=== PATIENT | male | born 1935 | race Caucasian/White ===

== ENCOUNTER 2017-08-11 15:36 | Inpatient (IN) | payer MEDICARE ==
[~2017-08-11] VITALS: Ht 160 cm; Wt 65.5 kg
[2017-08-11] MEDS ORDERED: SODIUM CHLORIDE FLUSH 10ML SYR IVF ONE (16:30)
[2017-08-11] MEDS ORDERED: SODIUM CHLORIDE 0.9% 1,000ML IVBOLUS ONE (16:30)
[2017-08-11 16:31] LABS: BASOPHILS # (AUTO) 0.04 x10^3/uL (0-0.1); BASOPHILS % (AUTO) 1 % (0-1); EOSINOPHILS # (AUTO) 0.17 x10^3/uL (0-0.4); EOSINOPHILS % (AUTO) 2 % (1-7); LYMPHOCYTES # (AUTO) 1.65 x10^3/uL (1-3.4); LYMPHOCYTES % (AUTO) 20 % (22-44); MD NO; MEAN CORPUSCULAR HEMOGLOBIN 32.2 pg (27.5-34.5); MEAN CORPUSCULAR HGB CONC 34.3 g/dL (33.2-36.2); MEAN CORPUSCULAR VOLUME 93.9 fL (81-97); MEAN PLATELET VOLUME 7.3 fL (7.4-10.4); MONOCYTES # (AUTO) 0.69 x10^3/uL (0.2-0.8); MONOCYTES % (AUTO) 8 % (2-9); NEUTROPHILS # (AUTO) 5.81 x10^3/uL (1.8-6.8); NEUTROPHILS % (AUTO) 70 % (42-75); PLATELET COUNT 323 x10^3/uL (130-400); RED BLOOD COUNT 4.09 x10^6/uL (4.38-5.82)
[2017-08-11 16:35] LABS: INTERNATIONAL NORMALIZED RATIO 2.7 (0.93-1.1); PROTHROMBIN TIME 27.3 Seconds (9.6-11.5)
[2017-08-11 16:40] LABS: ALANINE AMINOTRANSFERASE 27 U/L (12-78); ALBUMIN 3.6 g/dL (3.4-5.0); ANION GAP 7 mmol/L (5-15); CHLORIDE 109 mmol/L (98-107)
[2017-08-11 16:43] LABS: ALKALINE PHOSPHATASE 104 U/L (45-117); BILIRUBIN,TOTAL 0.5 mg/dL (0.2-1.0); CREATININE 1.09 mg/dL (0.7-1.3); TOTAL PROTEIN 7.3 g/dL (6.4-8.2)
[2017-08-11] MEDS ORDERED: METF500T4 PO (18:31)
[2017-08-11] MEDS ORDERED: MAGN300C PO (18:31)
[2017-08-11] MEDS ORDERED: WARF7.5T6 PO (18:31)
[2017-08-11] MEDS ORDERED: LIRA0.6P2 SQ (18:31)
[2017-08-11] MEDS ORDERED: INSU100V8 SQ (18:31)
[2017-08-11] MEDS ORDERED: UBIQ100C3 PO (18:31)
[2017-08-11] MEDS ORDERED: MULT-326 PO (18:31)
[2017-08-11] MEDS ORDERED: PIOG15TA2 PO (18:31)
[2017-08-11] MEDS ORDERED: BACL-19 PO (18:31)
[2017-08-11] MEDS ORDERED: FLUT1DIS3 INH (18:31)
[2017-08-11] MEDS ORDERED: ATOR10TA9 PO (18:31)
[2017-08-11] MEDS ORDERED: OMNIPAQUE 350 MG/ML, 100ML BOTTLE ONE (19:01)
[2017-08-11] MEDS ORDERED: SODIUM CHLORIDE 0.9% 1,000 ML IV SCH (20:49)
[2017-08-11] MEDS ORDERED: GLUCAGON 1 MG IM PRN (21:00)
[2017-08-11] MEDS ORDERED: DEXTROSE 4 GM TAB.CHEW PO PRN (21:00)
[2017-08-11] MEDS ORDERED: DEXTROSE 50%, 50ML SYRINGE IVPush PRN (21:00)
[2017-08-11] MEDS ORDERED: ACETAMINOPHEN 325 MG TABLET PO PRN (21:00)
[2017-08-11] MEDS ORDERED: SODIUM CHLORIDE FLUSH 10ML SYR IVF PRN (21:00)
[2017-08-11] MEDS: SODIUM CHLORIDE FLUSH 10ML SYR IVF SCH (21:40)
[2017-08-11 22:30] VITALS: BP 150/74
[2017-08-11] MEDS: INSULIN DETEMIR 100 UNITS/ML, PEN SQ-INSULIN SCH (23:53)
[2017-08-11] MEDS: BACLOFEN 10 MG TABLET PO SCH (23:54)
[2017-08-11] MEDS: ATORVASTATIN 10 MG TABLET PO SCH (23:54)
[2017-08-12 00:41] LABS: OCCULT BLOOD POSITIVE (NEGATIVE)
[2017-08-12 00:42] LABS: CLOSTRIDIUM DIFFICILE ANTIGEN POSITIVE; CLOSTRIDIUM DIFFICILE TOXIN NEGATIVE (Negative)
[2017-08-12 02:40] VITALS: BP 126/81
[2017-08-12 06:45] VITALS: BP 118/62
[2017-08-12 07:40] LABS: INTERNATIONAL NORMALIZED RATIO 1.8 (0.93-1.1); PROTHROMBIN TIME 18.3 Seconds (9.6-11.5)
[2017-08-12 07:50] LABS: BASOPHILS # (AUTO) 0.02 x10^3/uL (0-0.1); BASOPHILS % (AUTO) 0 % (0-1); EOSINOPHILS # (AUTO) 0.27 x10^3/uL (0-0.4); EOSINOPHILS % (AUTO) 3 % (1-7); LYMPHOCYTES # (AUTO) 1.64 x10^3/uL (1-3.4); LYMPHOCYTES % (AUTO) 20 % (22-44); MD NO; MEAN CORPUSCULAR HEMOGLOBIN 32.7 pg (27.5-34.5); MEAN CORPUSCULAR HGB CONC 34.8 g/dL (33.2-36.2); MEAN PLATELET VOLUME 7.2 fL (7.4-10.4); MONOCYTES % (AUTO) 10 % (2-9); NEUTROPHILS # (AUTO) 5.29 x10^3/uL (1.8-6.8); NEUTROPHILS % (AUTO) 66 % (42-75); PLATELET COUNT 261 x10^3/uL (130-400); RED BLOOD COUNT 3.33 x10^6/uL (4.38-5.82); RED CELL DISTRIBUTION WIDTH 14.2 % (9.4-14.8)
[2017-08-12 07:51] LABS: HEMOGRAM NOTE RECHECKED
[2017-08-12] MEDS ORDERED: BACLOFEN 10 MG TABLET PO SCH (09:00)
[2017-08-12] MEDS ORDERED: metFORMIN 500 MG TABLET PO SCH (09:00)
[2017-08-12] MEDS ORDERED: PIOGLITAZONE 15 MG TABLET PO SCH (09:00)
[2017-08-12] MEDS: MULTIVITAMINS/MINERALS TABLET PO SCH (09:06)
[2017-08-12] MEDS: SODIUM CHLORIDE FLUSH 10ML SYR IVF SCH ×2 (09:06→21:42)
[2017-08-12] MEDS: FLUTICASONE/VILANTEROL 100-25MCG/INH INH SCH (11:36)
[2017-08-12 12:30] VITALS: BP 135/79
[2017-08-12] MEDS: Liraglutide (Victoza 3-Pak) 1.2 MG SQ SCH (12:45)
[2017-08-12] MEDS: INSULIN ASPART 100 UNITS/ML, PEN SQ-INSULIN SCH ×2 (17:52→21:00)
[2017-08-12 19:51] VITALS: BP 129/72
[2017-08-12] MEDS: ATORVASTATIN 10 MG TABLET PO SCH (21:00)
[2017-08-12] MEDS: INSULIN DETEMIR 100 UNITS/ML, PEN SQ-INSULIN SCH (21:41)
[2017-08-12] MEDS: BACLOFEN 10 MG TABLET PO SCH (23:55)
[2017-08-13 02:59] VITALS: BP 109/63
[2017-08-13 06:17] LABS: BASOPHILS # (AUTO) 0.02 x10^3/uL (0-0.1); BASOPHILS % (AUTO) 0 % (0-1); EOSINOPHILS # (AUTO) 0.24 x10^3/uL (0-0.4); EOSINOPHILS % (AUTO) 3 % (1-7); LYMPHOCYTES # (AUTO) 1.25 x10^3/uL (1-3.4); LYMPHOCYTES % (AUTO) 17 % (22-44); MD NO; MEAN CORPUSCULAR HEMOGLOBIN 32.2 pg (27.5-34.5); MEAN CORPUSCULAR HGB CONC 34.5 g/dL (33.2-36.2); MEAN CORPUSCULAR VOLUME 93.5 fL (81-97); MONOCYTES # (AUTO) 0.76 x10^3/uL (0.2-0.8); MONOCYTES % (AUTO) 10 % (2-9); NEUTROPHILS # (AUTO) 5.19 x10^3/uL (1.8-6.8); NEUTROPHILS % (AUTO) 70 % (42-75); PLATELET COUNT 282 x10^3/uL (130-400); RED BLOOD COUNT 3.36 x10^6/uL (4.38-5.82); RED CELL DISTRIBUTION WIDTH 13.8 % (9.4-14.8)
[2017-08-13 06:28] LABS: CHLORIDE 107 mmol/L (98-107)
[2017-08-13 06:34] LABS: ANION GAP 7 mmol/L (5-15); CALCIUM 8.3 mg/dL (8.5-10.1); CREATININE 0.89 mg/dL (0.7-1.3)
[2017-08-13] MEDS: INSULIN ASPART 100 UNITS/ML, PEN SQ-INSULIN SCH ×4 (07:00→21:57)
[2017-08-13 07:38] VITALS: BP 144/74
[2017-08-13] MEDS: BACLOFEN 10 MG TABLET PO SCH (09:18)
[2017-08-13] MEDS: MULTIVITAMINS/MINERALS TABLET PO SCH (09:18)
[2017-08-13] MEDS: FLUTICASONE/VILANTEROL 100-25MCG/INH INH SCH (09:19)
[2017-08-13 11:24] LABS: INTERNATIONAL NORMALIZED RATIO 1.18 (0.93-1.1); PROTHROMBIN TIME 12.1 Seconds (9.6-11.5)
[2017-08-13] MEDS: Liraglutide (Victoza 3-Pak) 1.2 MG SQ SCH (11:31)
[2017-08-13] MEDS: SODIUM CHLORIDE FLUSH 10ML SYR IVF SCH ×2 (11:34→21:58)
[2017-08-13 13:31] VITALS: BP 148/64
[2017-08-13] MEDS ORDERED: WARFARIN 10 MG TABLET PO-COUM ONE (18:00)
[2017-08-13 18:53] VITALS: BP 136/61
[2017-08-13] MEDS: ATORVASTATIN 10 MG TABLET PO SCH (21:00)
[2017-08-13] MEDS: INSULIN DETEMIR 100 UNITS/ML, PEN SQ-INSULIN SCH (21:57)
[2017-08-14 02:14] VITALS: BP 119/77
[2017-08-14 05:27] LABS: BASOPHILS # (AUTO) 0.01 x10^3/uL (0-0.1); BASOPHILS % (AUTO) 0 % (0-1); EOSINOPHILS % (AUTO) 3 % (1-7); LYMPHOCYTES # (AUTO) 0.94 x10^3/uL (1-3.4); LYMPHOCYTES % (AUTO) 12 % (22-44); MD NO; MEAN CORPUSCULAR HEMOGLOBIN 32.3 pg (27.5-34.5); MEAN CORPUSCULAR HGB CONC 34.1 g/dL (33.2-36.2); MEAN CORPUSCULAR VOLUME 94.6 fL (81-97); MEAN PLATELET VOLUME 7.3 fL (7.4-10.4); MONOCYTES # (AUTO) 0.83 x10^3/uL (0.2-0.8); MONOCYTES % (AUTO) 11 % (2-9); NEUTROPHILS # (AUTO) 5.67 x10^3/uL (1.8-6.8); NEUTROPHILS % (AUTO) 74 % (42-75); PLATELET COUNT 270 x10^3/uL (130-400); RED BLOOD COUNT 3.45 x10^6/uL (4.38-5.82); RED CELL DISTRIBUTION WIDTH 13.7 % (9.4-14.8)
[2017-08-14 06:01] LABS: INTERNATIONAL NORMALIZED RATIO 1.12 (0.93-1.1); PROTHROMBIN TIME 11.5 Seconds (9.6-11.5)
[2017-08-14] MEDS: INSULIN ASPART 100 UNITS/ML, PEN SQ-INSULIN SCH (07:00)
[2017-08-14 07:05] VITALS: BP 118/70
[2017-08-14] MEDS: SODIUM CHLORIDE FLUSH 10ML SYR IVF SCH (09:00)
[2017-08-14] MEDS: BACLOFEN 10 MG TABLET PO SCH (09:22)
[2017-08-14] MEDS: FLUTICASONE/VILANTEROL 100-25MCG/INH INH SCH (09:22)
[2017-08-14] MEDS: MULTIVITAMINS/MINERALS TABLET PO SCH (09:22)
[2017-08-14] MEDS ORDERED: WARFARIN 10 MG TABLET PO-COUM ONE (18:00)
== END 2017-08-14 12:55 | disposition home or self-care (01) | DRG 378 ==
LOC: ED 19:27 → SUATTDRO 20:22 → EDIP 21:03 → 4EST 22:17
PROVIDERS: ADMIT Hospitalist; ATTEND Hospitalist
PROC: 5A09357 Assistance with Respiratory Ventilation, Less than 24 Consecutive Hours, Continuous Positive Airway Pressure (ICD-10-PCS; principal; 2017-08-11)
DX: K57.31 Diverticulosis of large intestine without perforation or abscess with bleeding (principal); D68.69 Other thrombophilia; E11.9 Type 2 diabetes mellitus without complications; J44.9 Chronic obstructive pulmonary disease, unspecified; E78.5 Hyperlipidemia, unspecified; Z79.01 Long term (current) use of anticoagulants; G47.30 Sleep apnea, unspecified; K40.90 Unilateral inguinal hernia, without obstruction or gangrene, not specified as recurrent; M54.9 Dorsalgia, unspecified; G89.29 Other chronic pain; R79.1 Abnormal coagulation profile; Z79.4 Long term (current) use of insulin; Z87.891 Personal history of nicotine dependence; Z86.718 Personal history of other venous thrombosis and embolism; Z90.49 Acquired absence of other specified parts of digestive tract
CPT/HCPCS: 36415; 74177; 78278; 80048; 80053; 82272; 82962; 83690; 85014; 85018; 85025; 85610; 87324; 87493; 93970; 94660; 96360; J1815; Q9967; A9560; C9898; J7030

== ENCOUNTER 2017-08-23 15:33 | Inpatient (IN) | payer MEDICARE ==
[~2017-08-23] VITALS: Ht 160 cm; Wt 65.4 kg
[~2017-08-23 15:33] MED LIST: ATOR10TA9 PO; BACL-19 PO; FLUT1DIS3 INH; INSU100V8 SQ; LIRA0.6P2 SQ; MAGN300C PO; METF500T4 PO; MULT-326 PO; PIOG15TA2 PO; UBIQ100C3 PO; WARF7.5T6 PO
[2017-08-23] MEDS ORDERED: SODIUM CHLORIDE FLUSH 10ML SYR IVF ONE (17:00)
[2017-08-23 17:02] LABS: HEMATOCRIT 38.6 % (39.2-51.8); HEMOGLOBIN 12.9 g/dL (13.7-18.0); WHITE BLOOD COUNT 9.3 x10^3/uL (3.4-10)
[2017-08-23 17:13] LABS: ASPARTATE AMINO TRANSFERASE 22 U/L (15-37); BLOOD UREA NITROGEN 17 mg/dL (7-18)
[2017-08-23 17:18] LABS: IS PT STATUS REG ER OR PRE ER? YES
[2017-08-23] MEDS ORDERED: SODIUM CHLORIDE FLUSH 10ML SYR IVF PRN (19:00)
[2017-08-23] MEDS ORDERED: BUPIVACAINE 0.25% ONE (19:16)
[2017-08-23] MEDS ORDERED: MIDAZOLAM 1 MG/ML, 5ML ONE (19:21)
[2017-08-23] MEDS ORDERED: ONDANSETRON 2MG/ML, 2ML ONE (19:21)
[2017-08-23] MEDS ORDERED: MORPHINE SULFATE 4 MG/ML, 1ML ONE ×2 (19:21→20:07)
[2017-08-23] MEDS ORDERED: MIDAZOLAM 1 MG/ML, 2ML IVPush ONE (19:30)
[2017-08-23] MEDS ORDERED: ONDANSETRON 2MG/ML, 2ML IVPush ONE (19:30)
[2017-08-23] MEDS: MORPHINE SULFATE 4 MG/ML, 1ML IVPush PRN ×2 (19:31→20:08)
[2017-08-23 21:00] VITALS: BP 127/67
[2017-08-23] MEDS ORDERED: ACETAMINOPHEN 325 MG TABLET PO PRN (22:30)
[2017-08-23] MEDS ORDERED: ONDANSETRON ODT 4 MG PO PRN (22:30)
[2017-08-23] MEDS: INSULIN ASPART 100 UNITS/ML, PEN SQ-INSULIN SCH (23:00)
[2017-08-23] MEDS ORDERED: UBIQ75CA PO (23:04)
[2017-08-23] MEDS: SODIUM CHLORIDE 0.9% 1,000 ML IV SCH (23:55)
[2017-08-24] MEDS: BACLOFEN 10 MG TABLET PO SCH ×2 (00:01→20:13)
[2017-08-24] MEDS: MAGNESIUM OXIDE 400 MG TABLET PO SCH ×2 (00:01→20:12)
[2017-08-24 02:05] VITALS: BP 124/67
[2017-08-24] MEDS ORDERED: ALBUTEROL SULFATE 2.5 MG/3 ML NPPB PRN (03:30)
[2017-08-24 05:28] LABS: HEMATOCRIT 34.6 % (39.2-51.8); HEMOGLOBIN 11.7 g/dL (13.7-18.0); WHITE BLOOD COUNT 8.5 x10^3/uL (3.4-10)
[2017-08-24 05:53] LABS: ASPARTATE AMINO TRANSFERASE 19 U/L (15-37); BLOOD UREA NITROGEN 17 mg/dL (7-18)
[2017-08-24 06:45] VITALS: BP 114/63
[2017-08-24] MEDS: INSULIN ASPART 100 UNITS/ML, PEN SQ-INSULIN SCH ×4 (07:00→21:31)
[2017-08-24] MEDS: MULTIVITAMINS/MINERALS TABLET PO SCH (07:42)
[2017-08-24] MEDS: SODIUM CHLORIDE 0.9% 1,000 ML IV SCH ×2 (07:42→16:52)
[2017-08-24] MEDS: FLUTICASONE/VILANTEROL 100-25MCG/INH INH SCH (08:44)
[2017-08-24] MEDS: UBIQUINONE 100 MG HOMEMEDPO SCH (12:00)
[2017-08-24] MEDS ORDERED: UBIQUINOL 100 MG PO SCH (12:00)
[2017-08-24 16:54] VITALS: BP 141/83
[2017-08-24 19:38] VITALS: BP 134/70
[2017-08-24] MEDS: ATORVASTATIN 10 MG TABLET PO SCH (20:12)
[2017-08-25] MEDS: SODIUM CHLORIDE 0.9% 1,000 ML IV SCH ×3 (01:32→18:01)
[2017-08-25 02:59] VITALS: BP 116/67
[2017-08-25] MEDS: MULTIVITAMINS/MINERALS TABLET PO SCH (08:06)
[2017-08-25] MEDS: FLUTICASONE/VILANTEROL 100-25MCG/INH INH SCH (08:06)
[2017-08-25] MEDS: INSULIN ASPART 100 UNITS/ML, PEN SQ-INSULIN SCH ×4 (08:06→20:40)
[2017-08-25 09:03] VITALS: BP 156/74
[2017-08-25] MEDS: UBIQUINONE 100 MG HOMEMEDPO SCH (11:54)
[2017-08-25 14:47] VITALS: BP 127/66
[2017-08-25 20:14] VITALS: BP 144/64
[2017-08-25] MEDS: ATORVASTATIN 10 MG TABLET PO SCH (20:33)
[2017-08-25] MEDS: BACLOFEN 10 MG TABLET PO SCH (20:33)
[2017-08-25] MEDS: MAGNESIUM OXIDE 400 MG TABLET PO SCH (20:33)
[2017-08-26 02:58] VITALS: BP 124/69
[2017-08-26] MEDS: SODIUM CHLORIDE 0.9% 1,000 ML IV SCH ×2 (03:00→12:18)
[2017-08-26] MEDS: INSULIN ASPART 100 UNITS/ML, PEN SQ-INSULIN SCH ×3 (06:30→16:43)
[2017-08-26 07:50] VITALS: BP 152/68
[2017-08-26] MEDS: MULTIVITAMINS/MINERALS TABLET PO SCH (09:14)
[2017-08-26] MEDS: FLUTICASONE/VILANTEROL 100-25MCG/INH INH SCH (09:15)
[2017-08-26] MEDS: UBIQUINONE 100 MG HOMEMEDPO SCH (12:00)
[2017-08-26] MEDS ORDERED: TRAM50TA2 PO (13:30)
[2017-08-26 13:55] VITALS: BP 138/67
[2017-08-26 16:08] VITALS: BP 149/85
[2017-08-26 20:16] VITALS: BP 150/70
[2017-08-26 21:41] VITALS: BP 148/77
== END 2017-08-26 21:41 | disposition home or self-care (01) | DRG 199 ==
LOC: ED 16:45 → EDIP 18:48 → 4NOR 21:00
PROVIDERS: ADMIT Surgery; ATTEND Family Medicine
PROC: 0W9B30Z Drainage of Left Pleural Cavity with Drainage Device, Percutaneous Approach (ICD-10-PCS; principal; 2017-08-23)
DX: J93.83 Other pneumothorax (principal); J96.21 Acute and chronic respiratory failure with hypoxia; D68.51 Activated protein C resistance; T79.7XXA Traumatic subcutaneous emphysema, initial encounter; R23.8 Other skin changes; X58.XXXA Exposure to other specified factors, initial encounter; M54.9 Dorsalgia, unspecified; G89.29 Other chronic pain; E11.9 Type 2 diabetes mellitus without complications; E78.5 Hyperlipidemia, unspecified; J44.9 Chronic obstructive pulmonary disease, unspecified; Z79.01 Long term (current) use of anticoagulants; Z79.4 Long term (current) use of insulin; Z86.718 Personal history of other venous thrombosis and embolism; Z90.49 Acquired absence of other specified parts of digestive tract
CPT/HCPCS: 36415; 71010; 80053; 82962; 83036; 83735; 83880; 84100; 84443; 84484; 85025; 85610; 85730; 93005; 94640; 96374; 96375; 96376; J1815; J2250; J2405; J7613; J7030

== ENCOUNTER → 2018-09-08 | Outpatient (CLI) | payer MEDICARE ==
[~2018-09-08] MED LIST changes: +METF500T17 PO; -METF500T4 PO; -PIOG15TA2 PO; +PIOG15TA66 PO; +TRAM50TA2 PO; +UBIQ75CA PO; +WARF7.5T46 PO; -WARF7.5T6 PO
== END | disposition home or self-care (01) ==
LOC: CFH 15:24
PROVIDERS: ATTEND Registered Nurse
DX: J43.9 Emphysema, unspecified (principal); Z87.891 Personal history of nicotine dependence
CPT/HCPCS: G0297

== ENCOUNTER 2019-04-04 12:18 | Outpatient (CLI) | payer MEDICARE | END 2019-04-04 23:59 | disposition home or self-care (01) | LOC: CFH 12:18 → EDSTATUS 12:30 → CFH 23:59 | PROVIDERS: ATTEND Internal Medicine Hematology & Oncology | DX: I82.409 Acute embolism and thrombosis of unspecified deep veins of unspecified lower extremity (principal); M79.605 Pain in left leg; M79.604 Pain in right leg | CPT/HCPCS: 93970 ==

== ENCOUNTER 2020-11-06 13:17 | Inpatient (IN) | payer MEDICARE ==
[~2020-11-06] VITALS: Ht 160 cm; Wt 49.0 kg
--- NOTE | 2020-11-06 13:29 | NUR ---
director cloud transformation: EKG done in triage
--- NOTE | 2020-11-06 13:50 | NUR ---
PT HAS CO LEFT SIDE CP AND INCREASED SOB, STARTED THIS AM. HX OF COPD AND COLLAPSED LUNG. MD AT BEDSIDE. PT ON [employer], NOT IN DISTRESS. RESTING COMFORTABLE.
[2020-11-06] MEDS ORDERED: SODIUM CHLORIDE FLUSH 10ML SYR IVF ONE (14:00)
--- NOTE | 2020-11-06 14:06 | NUR ---
LAB AT BEDSIDE. XR COMPLETED
[2020-11-06 14:21] LABS: BASOPHILS % (AUTO) 1 % (0-1); EOSINOPHILS % (AUTO) 1 % (1-7); LYMPHOCYTES % (AUTO) 11 % (22-44); MEAN CORPUSCULAR HEMOGLOBIN 31.5 pg (27.5-34.5); MEAN CORPUSCULAR HGB CONC 33.7 g/dL (33.2-36.2); MEAN PLATELET VOLUME 7.9 fL (7.4-10.4); MONOCYTES % (AUTO) 8 % (2-9); NEUTROPHILS % (AUTO) 80 % (42-75); PLATELET COUNT 222 x10^3/uL (130-400); RED BLOOD COUNT 4.37 x10^6/uL (4.38-5.82)
[2020-11-06 14:22] LABS: MD NO
[2020-11-06 14:30] LABS: ALANINE AMINOTRANSFERASE 46 U/L (12-78); ALBUMIN 3.7 g/dL (3.4-5.0); ANION GAP 6 mmol/L (5-15); CALCIUM 8.9 mg/dL (8.5-10.1); CHLORIDE 110 mmol/L (98-107); CREATININE 0.91 mg/dL (0.7-1.3)
[2020-11-06 14:34] LABS: ALKALINE PHOSPHATASE 117 U/L (45-117); BILIRUBIN,TOTAL 0.3 mg/dL (0.2-1.0); TOTAL PROTEIN 7.3 g/dL (6.4-8.2); TROPONIN I < 0.015 ng/mL (0.000-0.045)
[2020-11-06] MEDS ORDERED: FENTANYL PF 100 MCG/2ML ONE (14:45)
[2020-11-06] MEDS ORDERED: NALOXONE 1 MG/ML, 2ML ONE (14:46)
[2020-11-06] MEDS ORDERED: LIDOCAINE 1%, 10ML ONE (14:55)
[2020-11-06] MEDS ORDERED: SODIUM CHLORIDE FLUSH 10ML SYR IVF PRN (15:00)
--- NOTE | 2020-11-06 15:03 | NUR ---
PT TO IR. PT COMFORTABLE, RESP EVEN AND UNLABORED
--- NOTE | 2020-11-06 15:33 | NUR ---
PT BACK FROM IR, CHEST TUBE IN PLACE TO LEFT SIDE. PT RESPIRATIONS EVEN AND UNLABORED. DENIES PAIN
--- NOTE | 2020-11-06 16:11 | NUR ---
ATTEMPT REPORT X1
--- NOTE | 2020-11-06 16:23 | NUR ---
REPORT TO EDUARDA
[2020-11-06] MEDS ORDERED: OXYcodone/APAP 5/325MG TABLET PO PRN (16:30)
[2020-11-06] MEDS ORDERED: TEMAZEPAM 15 MG CAPSULE PO PRN (16:30)
[2020-11-06] MEDS ORDERED: ACETAMINOPHEN 325 MG TABLET PO PRN (16:30)
[2020-11-06] MEDS ORDERED: GUAIFENESIN/DM 200-20MG, 10ML UDC PO PRN (16:30)
[2020-11-06] MEDS ORDERED: ONDANSETRON 2MG/ML, 2ML IVPush PRN (16:30)
[2020-11-06] MEDS ORDERED: ENALAPRILAT 1.25 MG/ML, 2ML IVPush PRN (16:30)
[2020-11-06] MEDS ORDERED: DOCUSATE 100 MG CAPSULE PO PRN (16:30)
[2020-11-06] MEDS ORDERED: CYCLOBENZAPRINE 10 MG TABLET PO PRN (16:30)
[2020-11-06] MEDS ORDERED: morphine SULFATE 10 MG/ML, 1ML IVPush PRN (16:30)
[2020-11-06 16:50] VITALS: BP 141/79
[2020-11-06] MEDS ORDERED: APIX5TAB PO (17:42)
[2020-11-06] MEDS ORDERED: synjardy PO (17:42)
[2020-11-06] MEDS ORDERED: SEMA1PEN SQ (17:42)
[2020-11-06] MEDS ORDERED: [UNRECOGNIZED DRUG - OTHER] INH (17:43)
[2020-11-06 19:16] VITALS: BP 143/70
[2020-11-06] MEDS: FAMOTIDINE 20 MG TABLET PO SCH (21:38)
[2020-11-06] MEDS: INSULIN REGULAR 100 UNITS/ML, 3ML VIAL SQ-INSULIN SCH (21:43)
[2020-11-06] MEDS: INSULIN GLARGINE 100 UNITS/ML, PEN SQ-INSULIN SCH (21:46)
[2020-11-07 00:51] VITALS: BP 148/78
[2020-11-07 05:34] LABS: BASOPHILS % (AUTO) 0 % (0-1); EOSINOPHILS % (AUTO) 3 % (1-7); LYMPHOCYTES % (AUTO) 19 % (22-44); MEAN CORPUSCULAR HEMOGLOBIN 31.8 pg (27.5-34.5); MEAN CORPUSCULAR HGB CONC 33.7 g/dL (33.2-36.2); MEAN PLATELET VOLUME 8.2 fL (7.4-10.4); MONOCYTES % (AUTO) 11 % (2-9); NEUTROPHILS % (AUTO) 67 % (42-75); PLATELET COUNT 215 x10^3/uL (130-400); RED BLOOD COUNT 4.23 x10^6/uL (4.38-5.82); RED CELL DISTRIBUTION WIDTH 13.8 % (9.4-14.8)
[2020-11-07 05:36] LABS: CHLORIDE 111 mmol/L (98-107)
[2020-11-07 05:41] LABS: ANION GAP 6 mmol/L (5-15); CALCIUM 8.5 mg/dL (8.5-10.1); CREATININE 0.78 mg/dL (0.7-1.3)
[2020-11-07 05:57] LABS: MD NO
[2020-11-07] MEDS: INSULIN REGULAR 100 UNITS/ML, 3ML VIAL SQ-INSULIN SCH ×4 (07:00→22:53)
[2020-11-07 07:43] VITALS: BP 130/74
[2020-11-07] MEDS: FAMOTIDINE 20 MG TABLET PO SCH ×2 (08:09→22:58)
[2020-11-07] MEDS: MULTIVITAMINS/MINERALS TABLET PO SCH (08:09)
[2020-11-07] MEDS: SYNJARDY SQ SCH (08:11)
[2020-11-07] MEDS: [UNRECOGNIZED DRUG - OTHER] INH SCH (08:11)
[2020-11-07] MEDS ORDERED: TIOTROPIUM BROMIDE 18 MCG/INH INH SCH (09:00)
[2020-11-07] MEDS ORDERED: FLUTICASONE/VILANTEROL 100-25MCG/INH INH SCH (09:00)
[2020-11-07 13:09] VITALS: BP 133/64
[2020-11-07 19:24] VITALS: BP 121/70
[2020-11-07] MEDS: INSULIN GLARGINE 100 UNITS/ML, PEN SQ-INSULIN SCH (22:54)
[2020-11-08 00:29] VITALS: BP 114/86
[2020-11-08] MEDS: INSULIN REGULAR 100 UNITS/ML, 3ML VIAL SQ-INSULIN SCH ×4 (07:00→21:27)
[2020-11-08 08:17] VITALS: BP 148/70
[2020-11-08] MEDS: MULTIVITAMINS/MINERALS TABLET PO SCH (08:36)
[2020-11-08] MEDS: OZEMPIC 1 MG PO SCH ×2 (08:37→18:31)
[2020-11-08] MEDS: [UNRECOGNIZED DRUG - OTHER] INH SCH ×2 (08:37→09:47)
[2020-11-08] MEDS: SYNJARDY SQ SCH (08:37)
[2020-11-08 15:59] VITALS: BP 115/76
[2020-11-08 18:51] VITALS: BP 117/63
[2020-11-08] MEDS: FAMOTIDINE 20 MG TABLET PO SCH (21:27)
[2020-11-08] MEDS: INSULIN GLARGINE 100 UNITS/ML, PEN SQ-INSULIN SCH (21:27)
[2020-11-09 01:09] VITALS: BP 119/60
[2020-11-09] MEDS: [UNRECOGNIZED DRUG - OTHER] INH SCH (06:10)
[2020-11-09] MEDS: INSULIN REGULAR 100 UNITS/ML, 3ML VIAL SQ-INSULIN SCH ×4 (07:00→21:00)
[2020-11-09 07:40] VITALS: BP 137/69
[2020-11-09] MEDS: MULTIVITAMINS/MINERALS TABLET PO SCH (07:58)
[2020-11-09] MEDS: SYNJARDY SQ SCH (09:00)
[2020-11-09 12:10] VITALS: BP 117/66
[2020-11-09 18:35] VITALS: BP 136/79
[2020-11-09] MEDS: INSULIN GLARGINE 100 UNITS/ML, PEN SQ-INSULIN SCH (21:07)
[2020-11-09] MEDS: FAMOTIDINE 20 MG TABLET PO SCH (21:08)
[2020-11-10 01:22] VITALS: BP 126/81
[2020-11-10 05:10] LABS: BASOPHILS % (AUTO) 1 % (0-1); EOSINOPHILS % (AUTO) 3 % (1-7); LYMPHOCYTES % (AUTO) 21 % (22-44); MEAN CORPUSCULAR HEMOGLOBIN 31.7 pg (27.5-34.5); MEAN CORPUSCULAR HGB CONC 34.1 g/dL (33.2-36.2); MEAN PLATELET VOLUME 8.2 fL (7.4-10.4); MONOCYTES % (AUTO) 10 % (2-9); NEUTROPHILS % (AUTO) 66 % (42-75); PLATELET COUNT 247 x10^3/uL (130-400); RED BLOOD COUNT 4.45 x10^6/uL (4.38-5.82); RED CELL DISTRIBUTION WIDTH 13.7 % (9.4-14.8)
[2020-11-10 05:15] LABS: ANION GAP 8 mmol/L (5-15); CHLORIDE 111 mmol/L (98-107); CREATININE 0.88 mg/dL (0.7-1.3)
[2020-11-10 05:16] LABS: MD NO
[2020-11-10 06:50] VITALS: BP 121/73
[2020-11-10] MEDS: INSULIN REGULAR 100 UNITS/ML, 3ML VIAL SQ-INSULIN SCH ×2 (07:35→12:22)
[2020-11-10] MEDS: MULTIVITAMINS/MINERALS TABLET PO SCH (08:42)
[2020-11-10] MEDS: SYNJARDY SQ SCH (08:42)
[2020-11-10] MEDS: [UNRECOGNIZED DRUG - OTHER] INH SCH (08:42)
[2020-11-10 13:40] VITALS: BP 134/70
== END 2020-11-10 16:44 | disposition home or self-care (01) | DRG 199 ==
LOC: ED 14:59 → 4NE 15:00 → ED 15:12 → DCLOUNGE 11-10 16:30
PROVIDERS: ADMIT Internal Medicine; ATTEND Internal Medicine
PROC: 0W9B00Z Drainage of Left Pleural Cavity with Drainage Device, Open Approach (ICD-10-PCS; principal; 2020-11-06)
PROC: 5A09357 Assistance with Respiratory Ventilation, Less than 24 Consecutive Hours, Continuous Positive Airway Pressure (ICD-10-PCS; 2020-11-10)
DX: J93.83 Other pneumothorax (principal); J96.21 Acute and chronic respiratory failure with hypoxia; D68.51 Activated protein C resistance; E11.65 Type 2 diabetes mellitus with hyperglycemia; E87.8 Other disorders of electrolyte and fluid balance, not elsewhere classified; J44.9 Chronic obstructive pulmonary disease, unspecified; Z79.4 Long term (current) use of insulin; Z83.3 Family history of diabetes mellitus; Z85.51 Personal history of malignant neoplasm of bladder; Z87.891 Personal history of nicotine dependence; Z99.81 Dependence on supplemental oxygen; Z90.49 Acquired absence of other specified parts of digestive tract
CPT/HCPCS: 32557; 36415; 71045; 80048; 80053; 82962; 83880; 84484; 85025; 93005; 94640; 96372; 99285; G0378; J1815; J3010; C1729; C1769; J2310